=== PATIENT | male | born 1980 | race Caucasian/White ===

== ENCOUNTER 2016-10-26 20:57 | Emergency (ER) | payer OTHER ==
[~2016-10-26] VITALS: Ht 182.9 cm; Wt 75.0 kg
[~2016-10-26 20:57] MED LIST: CEPH-512 PO; DOXY-232 PO; HYDR-4003 PO; SULF1TAB7 PO
[2016-10-26 21:05] VITALS: BP 121/68; PULSE 76; RESP 18; O2SAT 99
--- NOTE | 2016-10-26 21:32 | ED.REPORT ---
HPI-General Illness Date of Service Oct 26, 2016 ED Provider: Todd Mora MD A 36 year old male with a history of heroin and occasional methamphetamine use presents to the ED requesting help with heroin detox. The patient reports withdrawal symptoms of skin aches and chills. His last heroin use was yesterday , more than 24 hours ago. He has been using heroin for the past six months after being clean for two years. The patient has been on Suboxone previously. Nursing Notes Stated Complaint: ABDOMINAL PAIN Chief Complaint: Substance Abuse Nursing Notes Reviewed: Yes Allergies: Coded Allergies: No Known Allergies (Verified Allergy, Unknown, 10/26/16) Scheduled Buprenorphine HCl/Naloxone HCl (Suboxone 8 mg-2 mg Sl Film) 1 Each Film 1 EACH SL BID Cephalexin (Keflex) 500 Mg Capsule 500 MG PO QID Doxycycline Monohyd (Doxycycline Monohyd) 100 Mg Tablet 100 MG PO BID Sulfamethoxazole/Trimeth 800-160 mg (Bactrim DS) 1 Each Tablet 1 TABLET PO BID Scheduled PRN Hydrocodone-Acetaminophen 5-325 mg (Hydrocodone-Acetaminophen 5-325 mg) 1 Each Tablet 1-2 TABLET PO TID PRN PRN For Pain General Time Seen by MD: 21:27 Chief Complaint Other (Heroin Withdrawal) Hx Obtained From: Patient Arrived By: Walk-in Sudden in Onset?: No Onset Occurred: Yesterday Symptom Duration: Since onset Location: : Abdomen: Back: Chest Quality: Aching Severity: Current: Moderate Severity: Maximum: Moderate Associated with: Reports: Pain (Skin aches), Denies: Fever Pertinent Negative: Relieved by nothing Context Related History: Reports Drug dependence Recent Healthcare: No recent doctor visit Similar Sx Previous: Yes Past Medical History Past Medical History Facial staph infection MRSA Abscess Past Surgical History None reported Smoking History Never Smoker Social History Out of detention in 2016 Smokes heroin Drug Use: Meth Ambulatory Status Independent Review of Systems + Heroin withdrawal, skin aches Full Review of Systems Constitutional: Reports: Chills, Denies: Fever Respiratory: Reports: Non-productive cough, Denies: Shortness of breath GI: Denies: Vomiting Complete sys rev & neg: except as marked. Physical Exam Vital Signs Vital Signs Date Time Temp Pulse Resp B/P Pulse Ox O2 Delivery O2 Flow Rate FiO2 10/26/16 21:05 36.7 76 18 121/68 99 Room Air Initial VS: Reviewed, Vital signs normal Head / Eyes: Atraumatic, Normocephalic ENT: Conjunctiva normal, No scleral icterus Neck: Supple, Full range of motion Respiratory: Breath sounds normal, Clear to auscultation, No respiratory distress Neurologic: Alert, Oriented, Nonfocal General/Constitutional: Awake, Alert Behavior: Positive: Anxious Extraneous muscle movements Cardiovascular: Heart rate NL, Regular rhythm, Heart sounds NL, No murmurs Skin: Warm, Dry No tracks, no skin sores, no cutaneous sores Psychiatric: Affect NL, Cognitive function NL, Judgment/insight NL Abnormal Mood/Affect: Positive: Anxious Re-Eval/Medical Decision Med Decision/Clinical Course 36-year-old male well known to me from previous Suboxone treatment presents after a relapse of 6 months duration requesting Suboxone treatment. He was given a 1 week prescription for Suboxone and instructions on how to access Suboxone maintenance treatment. Source of Hx: Old records Time of Eval: 21:45 Patient Status: Condition improved Re-Evaluation/Progress Note: Discussed with patient diagnosis and plan for discharge. Follow-up and return to the ER instructions given. Patient agrees with plan for care and all questions were addressed. Counseled Regarding: Diagnosis, Need for follow-up, When/why to return to ED Discharge & Departure Primary Impression: Opioid use disorder, moderate, dependence Disposition: Home Discharge Condition All VS Reviewed: Yes Condition: Stable Patient Instructions: Buprenorphine/Naloxone (By mouth) Additional Instructions: Buprenorphine/naloxone 8/2 film, one strip dissolved orally twice daily, #14 prescription written. Contact [facility] or [facility] to get a follow-up appointment for maintenance therapy.. Referrals: [facility] (PCP) [facility] Cal Attestation Portions of this note were transcribed by Milka Khoury. I, Dr. Mora, personally performed the history, physical exam, and medical decision-making; I reviewed and confirmed the accuracy of the information in the transcribed note. Signed by: Cal Begum, 10/26/2016, 22:19 copies to: [facility] ; Todd Lares MD Oct 26, 2016 21:32 MILKA KHOURY Oct 26, 2016 21:44
[2016-10-26] MEDS ORDERED: Buprenorphine 2 mg SL Tablet SL ONE (21:45)
[2016-10-26] MEDS ORDERED: BUPR1FIL3 SL (21:59)
== END 2016-10-26 22:16 | disposition home or self-care (01) ==
LOC: SED 20:57
DX: F11.20 Opioid dependence, uncomplicated (principal)

== ENCOUNTER 2017-03-13 02:54 | Emergency (ER) | payer OTHER ==
[~2017-03-13] VITALS: Ht 182.9 cm; Wt 84.1 kg
[~2017-03-13 02:54] MED LIST changes: +BUPR1FIL3 SL
[2017-03-13 03:02] VITALS: BP 127/68; PULSE 68; RESP 24; O2SAT 100
--- NOTE | 2017-03-13 03:20 | ED.REPORT ---
HPI-General Illness Date of Service March 13, 2017 ED Provider: Todd Mora MD 36 y/o male with a hx of heroin abuse presents to the ED complaining of withdrawal symptoms, onset today. The pt states he ran out of Suboxone yesterday and could not sleep last night. He states he has not relapsed. The pt also reports pain in his neck that radiates to his back and arms. He states when he wakes up every morning, his hands are numb and "throbbing with pain". Nursing Notes Stated Complaint: SUBSTANCE ABUSE Chief Complaint: Substance Abuse Nursing Notes Reviewed: Yes Allergies: Coded Allergies: No Known Allergies (Verified Allergy, Unknown, 03/13/17) Scheduled Buprenorphine HCl/Naloxone HCl (Suboxone 8 mg-2 mg Sl Film) 1 Each Film 1 EACH SL BID Buprenorphine HCl/Naloxone HCl (Suboxone 8 mg-2 mg Sl Film) 1 Each Film 1 EACH SL DAILY Cephalexin (Keflex) 500 Mg Capsule 500 MG PO QID Doxycycline Monohyd (Doxycycline Monohyd) 100 Mg Tablet 100 MG PO BID Sulfamethoxazole/Trimeth 800-160 mg (Bactrim DS) 1 Each Tablet 1 TABLET PO BID Scheduled PRN Hydrocodone-Acetaminophen 5-325 mg (Hydrocodone-Acetaminophen 5-325 mg) 1 Each Tablet 1-2 TABLET PO TID PRN PRN For Pain General Time Seen by MD: 03:09 Chief Complaint Other (heroin withdrawal ) Hx Obtained From: Patient Arrived By: Walk-in Sudden in Onset?: Yes Onset Occurred: Yesterday Symptom Duration: Since onset Severity: Current: No pain currently Severity: Maximum: No pain Recent Healthcare: No recent doctor visit Similar Sx Previous: Yes Past Medical History Past Medical History Facial staph infection MRSA Abscess Past Surgical History None reported Smoking History Never Smoker Social History Out of detention in 2016 Smokes heroin Drug Use: Meth (in recovery), THC Ambulatory Status Independent Review of Systems Full Review of Systems Musculoskeletal: Reports: Back pain, Neck pain Neurologic: Reports: Numbness (Upper extremities. ) Complete sys rev & neg: except as marked. Physical Exam Vital Signs Vital Signs Date Time Temp Pulse Resp B/P Pulse Ox O2 Delivery O2 Flow Rate FiO2 03/13/17 03:02 36.7 68 24 127/68 100 Room Air Initial VS: Reviewed, Vital signs normal Head / Eyes: Atraumatic, Normocephalic Neck: Supple, Non-tender, Full range of motion Respiratory: Breath sounds normal, Clear to auscultation, No respiratory distress Cardiovascular: Regular rate & rhythm, Heart sounds normal, Intact distal pulses Abdomen / GI: Soft, Non-tender Extremities: Vascular intact, Neuro intact, No swelling, No tenderness Skin: Warm, Dry, No cyanosis Neurologic: Alert, Oriented, Nonfocal General/Constitutional: Awake, Alert, Cooperative Behavior: Positive: Tearful (Occasional) Re-Eval/Medical Decision Med Decision/Clinical Course 36-year-old male who was over confident about his ability to do without Suboxone early in his recovery. He did not relapse but has no medication in is in withdrawal. He was given a dose here in the emergency room and a short-term prescription and instructed to call and make an appointment with Dr. Small at [facility]. Source of Hx: Old records Time of Eval: 03:30 Re-Evaluation/Progress Note: Rechecked pt. Discussed diagnosis. Informed the pt of the plan to discharge. Pt understands and agrees with plan.F/U instructions and RTER warning given. All questions addressed. Counseled Regarding: Diagnosis, Need for follow-up, When/why to return to ED Discharge & Departure Primary Impression: Opioid use disorder, moderate, in sustained remission Disposition: Home Discharge Condition All VS Reviewed: Yes Condition: Improved Patient Instructions: Buprenorphine/Naloxone (Into the mouth) Additional Instructions: Continue buprenorphine/naloxone 8/, one strip daily, #7 prescribed. Follow-up with [facility]. Referrals: [facility] Scribe Attestation Portions of this note were transcribed by Benjamin Fitch. I, , personally performed the history, physical exam and medical decision-making;I reviewed and confirmed the accuracy of the information in the transcribed note. Signed by Cal Moreno. 03/13/17 0413 copies to: [facility] Todd Mora MD March 13, 2017 03:19 Benjamin Fitch March 13, 2017 03:31
[2017-03-13] MEDS ORDERED: Buprenorphine 2 mg SL Tablet SL ONE (03:40)
[2017-03-13] MEDS ORDERED: BUPR1FIL3 SL (03:46)
== END 2017-03-13 04:14 | disposition home or self-care (01) ==
LOC: SED 02:54
DX: F11.21 Opioid dependence, in remission (principal); Z86.14 Personal history of Methicillin resistant Staphylococcus aureus infection